=== PATIENT | female | born 1995 | race Two or more races ===

== ENCOUNTER 2017-06-15 11:06 | Emergency (ER) | payer SELFPAY ==
[~2017-06-15] VITALS: Ht 167.6 cm; Wt 72.6 kg
[2017-06-15] MEDS ORDERED: NKM (11:18)
--- NOTE | 2017-06-15 12:00 | Emergency Room Report ---
History of Present Illness General Chief Complaint: Earache Source: Patient Present Illness HPI Patient was cleaning L ear with Q tip when she had pain and decreased hearing. No fever or URI. Pain is 7/10, constant. No vertigo. Never with this problem before. No NV. Not . Allergies: Coded Allergies: No Known Allergies (Unverified , 06/15/17) Patient History Past Medical History: see triage record Social History: Denies: smoking, alcohol use, drug use Social History Narrative with sig other Now: No Reviewed Nursing Documentation: PMH: Agreed; PSxH: Agreed Nursing Documentation-PMH Past Medical History: No History, Except For Hx Asthma: Yes Review of Systems Constitutional: Reports: see HPI ENT: Reports: see HPI Respiratory: Denies: cough Gastrointestinal: Reports: see HPI Genitourinary: Reports: see HPI Skin: Reports: see HPI Neurological: Reports: see HPI Physical Exam Vital Signs Date Time Temp Pulse Resp B/P (MAP) Pulse Ox O2 Delivery O2 Flow Rate FiO2 06/15/17 11:12 98.0 78 18 108/71 96 Room Air 98.1 Sp02 EP Interpretation: reviewed, normal General Appearance: well appearing, no apparent distress Head: normocephalic, atraumatic Eyes: bilateral eye normal inspection, bilateral eye PERRL ENT: other - L TM with posterior rupture, no erythema or drainage. R TM normal. Small canals without pinna tenderness. Decreased hearing L Neck: full range of motion, supple Respiratory: no respiratory distress, speaking full sentences Gastrointestinal: normal inspection Musculoskeletal: digits/nails normal, gait/station normal, normal range of motion Neurologic: alert, normal gait, grossly normal - except for decreased hearing Psychiatric: mood/affect normal Skin: no rash Medical Decision Making Diagnostic Impression: Primary Impression: Eardrum perforation Additional Impression: Marginal perforation of tympanic membrane of left ear ER Course Patient presents with ear trauma, hearing loss and pain. Diagnosis is TM rupture. Most of TM intact but posterior aspect with perf. No erythema or drainage. Treatment with antibiotics and steroid drops and analgesics. Discussed need to see ENT specialist. Patient stable for outpatient observation and treatment. Last Vital Signs Date Time Temp Pulse Resp B/P (MAP) Pulse Ox O2 Delivery O2 Flow Rate FiO2 06/15/17 12:08 208.4 18 108/71 96 Room Air 208.4 06/15/17 11:12 78 Status: improved Disposition: HOME, SELF-CARE Condition: Improved Scripts Ibuprofen* (MOTRIN*) 600 Mg Tablet 600 MG ORAL Q6H PRN for For Pain, #20 TAB Prov: Darnell Mendez M.D. 06/15/17 Ciprofloxacin Hcl/Dexameth (CIPRODEX OTIC SUSPENSION) 7.5 Ml Drops.susp 4 DROP LEFT EAR TWICE A DAY for 7 Days, #10 ML Prov: Darnell Mendez M.D. 06/15/17 Darnell Mendez M.D. Jun 15, 2017 12:00
[2017-06-15] MEDS ORDERED: IBUPROFEN600 MG ORAL (12:03)
[2017-06-15] MEDS ORDERED: CIPRODEX OTIC7.5 M1 LEFT EAR (12:03)
[2017-06-15 12:08] VITALS: BP 108/71
== END 2017-06-15 12:05 | disposition home or self-care (01) ==
LOC: EMR 11:30
DX: H72.2X2 Other marginal perforations of tympanic membrane, left ear (principal)
CPT/HCPCS: 99284